=== PATIENT | female | born 1970 ===

== ENCOUNTER 2025-03-11 07:30 | Inpatient (IN) | payer OTHER ==
[~2025-03-11] VITALS: Ht 170.2 cm; Wt 72.6 kg
[2025-03-11] MEDS ORDERED: CLONAZEPAM2 M1 (08:21)
[2025-03-11] MEDS ORDERED: TRILEPTAL150 MG PO (08:21)
[2025-03-11 08:22] VITALS: BP 124/86
[2025-03-11 08:23] VITALS: BP 148/75
[2025-03-11 09:00] LABS: COVID-19 AG NEGATIVE (NEGATIVE)
[2025-03-18] MEDS ORDERED: CEFAZOLIN SODIUM 1,000 MG VIAL ONE ×2 (08:39→16:04)
[2025-03-18] MEDS ORDERED: METRONIDAZOLE/SODIUM CHLORIDE 500 MG/100 ML PIGGYBACK IV ONE (08:39)
[2025-03-18] MEDS ORDERED: VISTASEAL DUAL APPICATOR 1 EACH APPL TOP ONE (11:15)
[2025-03-18] MEDS ORDERED: SUGAMMADEX SODIUM 200 MG/2 ML VIAL IV ONE (11:15)
[2025-03-18] MEDS ORDERED: BUPIVACAINE HCL/Mpf 0.5% 10ML VIAL ONE (11:16)
[2025-03-18] MEDS ORDERED: THROMBIN,HU/FIBRINOGEN/CALCIUM 10 ML SYRINGE TOP ONE (11:16)
[2025-03-18] MEDS ORDERED: POVIDONE-IODINE 118 ML BOTT TOP ONE (11:22)
[2025-03-18] MEDS ORDERED: RINGERS SOLUTION,LACTATED 1,000 ML IV SCH (13:45)
[2025-03-18] MEDS ORDERED: MORPHINE SULFATE 4 MG/ML CARTRIDGE IV PRN (13:45)
[2025-03-18] MEDS ORDERED: ONDANSETRON HCL 2 MG/ML VIAL IV PRN (13:45)
[2025-03-18] MEDS ORDERED: OxyCODONE HCL 5 MG TABLET (ROXICODONE) PO PRN (13:45)
[2025-03-18 15:57] LABS: BASO % 0.3 % (0.1-1.2); EOS # 0.13 (0.04-0.54); EOS % 1.3 % (0.7-7.0); LYMPH # 1.03 (1.18-3.74); LYMPH % 10.6 % (19.3-53.1); MEAN PLATELET VOLUME 10.30 fl (9.4-12.4); MONO # 0.53 (0.24-0.82); MONO % 5.4 % (4.7-12.5); NEUT # 7.99 (1.56-6.13); NEUT % 82.1 % (34.0-71.1); RED CELL DISTRIBUTION WIDTH 13.0 % (11.6-14.4)
[2025-03-18] MEDS ORDERED: KETOROLAC TROMETHAMINE 30 MG VIAL ONE (16:04)
[2025-03-18 16:05] LABS: BUN CREA RATIO 7.0 (7.0-25.0); CREATININE SERUM 0.95 mg/dL (0.55-1.02); GFR 61.3; GLUCOSE FASTING 100.0 mg/dL (65-100); OSMOLALITY SERUM 283.0 MOSM/KG (275-295)
[2025-03-18] MEDS ORDERED: CEFAZOLIN SODIUM 1,000 MG VIAL IV SCH (17:00)
[2025-03-18 17:50] VITALS: BP 148/75; O2SAT 99
[2025-03-18] MEDS ORDERED: KETOROLAC TROMETHAMINE 30 MG VIAL IM SCH (18:00)
[2025-03-18] MEDS ORDERED: FAMOTIDINE/PF 20 MG/2 ML VIAL IV PUSH SCH (21:00)
[2025-03-19] VITALS: BP 109/61
[2025-03-19 06:55] LABS: BASO % 0.3 % (0.1-1.2); EOS # 0.07 (0.04-0.54); EOS % 1.1 % (0.7-7.0); LYMPH # 1.08 (1.18-3.74); LYMPH % 16.6 % (19.3-53.1); MEAN PLATELET VOLUME 10.60 fl (9.4-12.4); MONO # 0.68 (0.24-0.82); MONO % 10.5 % (4.7-12.5); NEUT # 4.63 (1.56-6.13); NEUT % 71.3 % (34.0-71.1); RED CELL DISTRIBUTION WIDTH 13.2 % (11.6-14.4)
[2025-03-19 07:40] LABS: BUN CREA RATIO 9.0 (7.0-25.0); CREATININE SERUM 0.67 mg/dL (0.55-1.02); GFR 91.72; GLUCOSE FASTING 94.0 mg/dL (65-100); OSMOLALITY SERUM 282.0 MOSM/KG (275-295)
[2025-03-19 08:00] VITALS: BP 110/66
[2025-03-19] MEDS ORDERED: ENOXAPARIN SODIUM 40 MG/0.4 ML SYRINGE SUBCUTANEO SCH (09:00)
== END 2025-03-19 10:28 | disposition home or self-care (01) | DRG 743 ==
LOC: SURH 03-18 07:30 → O/R 03-18 08:00 → SURH 03-18 12:30 → OB/GYN 03-18 15:27
PROVIDERS: ADMIT Obstetrics & Gynecology Gynecologic Oncology; ATTEND Obstetrics & Gynecology Gynecologic Oncology
PROC: 0UT74ZZ Resection of Bilateral Fallopian Tubes, Percutaneous Endoscopic Approach (ICD-10-PCS; 2025-03-18)
PROC: 0UB24ZZ Excision of Bilateral Ovaries, Percutaneous Endoscopic Approach (ICD-10-PCS; 2025-03-18)
PROC: 07BC4ZZ Excision of Pelvis Lymphatic, Percutaneous Endoscopic Approach (ICD-10-PCS; 2025-03-18)
PROC: 8E0W4CZ Robotic Assisted Procedure of Trunk Region, Percutaneous Endoscopic Approach (ICD-10-PCS; 2025-03-18)
PROC: 3E1M48Z Irrigation of Peritoneal Cavity using Irrigating Substance, Percutaneous Endoscopic Approach (ICD-10-PCS; 2025-03-18)
PROC: 0UT94ZZ Resection of Uterus, Percutaneous Endoscopic Approach (ICD-10-PCS; principal; 2025-03-18 12:30)
DX: D25.1 Intramural leiomyoma of uterus (principal); Z90.710 Acquired absence of both cervix and uterus; D27.0 Benign neoplasm of right ovary; D36.0 Benign neoplasm of lymph nodes
CPT/HCPCS: 58548; S2900